=== PATIENT | male | born 1950 ===

== ENCOUNTER 2017-01-10 18:41 | Inpatient (IN) | payer MEDICARE, OTHER ==
[~2017-01-10 18:41] MED LIST: ADVIL PO; ALEVE220 M1 PO; AVODART0.5 MG PO; CARVEDILOL12.5 M1 PO; CATAPRES0.1 M1 PO; COREG25 M1 PO; COZAAR25 M1 PO; CYCLOBENZAPRINE5 M1 PO; EXFORGE 10-3201 EACH PO; EXFORGE 10-3201 TAB PO; FENOFIBRATE145 M2 PO; FISH OIL 11000 MG/CA PO; FLOMAX0.4 M1 PO; FLOMAX0.4 MG PO; FUROSEMIDE20 M1 PO; GLUCOPHAGE1000 M1 PO; HUMALOG100 UNITS/ SC; HUMULIN 70/30 V10 ML SQ; INSULIN U; JALYN 0.5-0.41 EACH PO; KEFLEX500 M4 PO; LANTUS SOL100 UNIT/1 SC; LEVAMIR; LEVEMIR100 UNITS/ SC; LIPITOR10 M1 PO; LYRICA75 MG; NEURONTIN100 MG PO; NEURONTIN300 M1 PO; NORVASC10 M2 PO; NORVASC5 M2 PO; PERCOCET 5-3251 EACH PO; PRINZIDE 20/12.1 TAB PO; PRINZIDE 20/251 TAB; SILVADENE20 G1 TOP; SYNTHROID100 MC1 PO; TAMIFLU75 MG/CAP PO; TRAMADOL HCL50 M2 PO; TRIGLIDE160 M1 PO; TRIGLIDE160 MG; TRILIPIX135 MG PO; TYLENOL #3 PO; TYLENOL WITH C1 EACH PO; ZITHROMAX250 M1 PO; [UNRECOGNIZED DRUG - OTHER] PO; [UNRECOGNIZED DRUG - OTHER] TP
[2017-01-10] MEDS ORDERED: HYDROCODON-ACE1 EA16 PO (18:55)
[2017-01-10] MEDS ORDERED: CALCITRIOL0.5 MC1 PO (18:56)
[2017-01-10 19:54] LABS: BASO % 0.2 % (0-2); EOS % 0.8 % (0-7); EOSINOPHIL ABSOLUTE COUNT 0.1 tho/cmm (0.0-0.7); HCT-HEMATOCRIT 34.7 % (36.0-53.5); HGB-HEMOGLOBIN 11.9 gm/dl (13.5-17.0); IMMATURE GRANULOCYTES ABSOLUTE 0.03 tho/cmm (0-0.03); IMMATURE GRANULOCYTES PERCENT 0.2 % (0-0.3); LYMPH % 5.7 % (20-45); LYMPH ABSOLUTE COUNT 0.7 tho/cmm (0.8-4.5); MCH (MEAN CORPUSCULAR HGB) 27.6 pg (28.0-32.0); MCHC MEAN CORPUSCULAR HGB CONC 34.3 % (32.0-36.0); MCV (MEAN CELL VOLUME) 80.5 fl (82.0-96.0); MEAN PLATELET VOLUME 8.6 cmc (9.4-12.4); MONO % 8.2 % (0-12); MONOCYTE ABSOLUTE COUNT 1.1 tho/cmm (0.0-1.2); NEUTROPHIL ABSOLUTE COUNT 10.9 tho/cmm (1.6-8.0); NEUTROPHIL-AUTOMATED 10.9 tho/cmm (1.6-8.0); NEUTROPHILS % 84.9 % (40-80); PLATELET COUNT 215 tho/cmm (150-450); RED BLOOD COUNT 4.31 mil/cmm (4.40-5.70); RED CELL DISTRIBUTION WIDTH 14.1 % (12.4-16.4); WHITE BLOOD COUNT 12.9 tho/cmm (4.0-10.0)
[2017-01-10 19:59] LABS: PROTHROMBIN TIME 11.9 SECONDS (9.0-13.6)
[2017-01-10 20:12] LABS: ALB/GLOB RATIO 0.6 (0.8-2.0); ALBUMIN 2.8 g/dl (3.5-5.0); ALKALINE PHOSPHATASE 126 U/L (33-138); ALT/SGPT 62 U/L (12-78); ANION GAP 12 mmol/L (0-20); AST/SGOT 112 U/L (10-40); BILIRUBIN,TOTAL 1.8 mg/dl (0.0-1.5); BLOOD UREA NITROGEN 34 mg/dl (6-24); CALCIUM 7.9 mg/dl (8.5-10.5); CARBON DIOXIDE-VENOUS 26 mmol/L (22-32); CHLORIDE 104 mmol/l (96-110); CREATININE 2.49 mg/dl (0.60-1.30); GLUCOSE 122 mg/dL (70-110); POTASSIUM 4.4 mmol/L (3.7-5.1); SODIUM 138 mmol/L (135-145); eGFR VALUE FOR BLACK 30 mL/Min
[2017-01-10 20:15] LABS: URINE LEUKOCYTE ESTERASE NEGATIVE (NEG); URINE PROTEIN LARGE (NEG); URINE SPECIFIC GRAVITY 1.015 (1.003-1.030)
[2017-01-10 20:17] LABS: URINE APPEARANCE HAZY; URINE BILIRUBIN SMALL (NEG); URINE BLOOD MODERATE (NEG); URINE COLOR YELLOW; URINE GLUCOSE (UA) SMALL (NEG); URINE KETONE SMALL (NEG); URINE NITRITE NEGATIVE (NEG)
[2017-01-10 20:17] LABS: LIPASE 20351 U/L (73-393)
[2017-01-10 20:28] LABS: URINE AMORPHOUS 1+; URINE BACTERIA 1+; URINE EPITHELIAL CELLS RARE /[HPF] (0-10)
[2017-01-11 05:57] LABS: BASO % 0.1 % (0-2); EOS % 0.1 % (0-7); HCT-HEMATOCRIT 35.2 % (36.0-53.5); HGB-HEMOGLOBIN 11.8 gm/dl (13.5-17.0); IMMATURE GRANULOCYTES ABSOLUTE 0.02 tho/cmm (0-0.03); IMMATURE GRANULOCYTES PERCENT 0.1 % (0-0.3); LYMPH % 4.9 % (20-45); LYMPH ABSOLUTE COUNT 0.7 tho/cmm (0.8-4.5); MCHC MEAN CORPUSCULAR HGB CONC 33.5 % (32.0-36.0); MCV (MEAN CELL VOLUME) 80.5 fl (82.0-96.0); MEAN PLATELET VOLUME 9.3 cmc (9.4-12.4); MONO % 10.3 % (0-12); MONOCYTE ABSOLUTE COUNT 1.4 tho/cmm (0.0-1.2); NEUTROPHIL ABSOLUTE COUNT 11.3 tho/cmm (1.6-8.0); NEUTROPHIL-AUTOMATED 11.3 tho/cmm (1.6-8.0); NEUTROPHILS % 84.5 % (40-80); PLATELET COUNT 177 tho/cmm (150-450); RED BLOOD COUNT 4.37 mil/cmm (4.40-5.70); RED CELL DISTRIBUTION WIDTH 14.4 % (12.4-16.4); WHITE BLOOD COUNT 13.4 tho/cmm (4.0-10.0)
[2017-01-11 06:05] LABS: ANION GAP 13 mmol/L (0-20); BLOOD UREA NITROGEN 32 mg/dl (6-24); CALCIUM 7.6 mg/dl (8.5-10.5); CARBON DIOXIDE-VENOUS 24 mmol/L (22-32); CHLORIDE 107 mmol/l (96-110); CREATININE 2.65 mg/dl (0.60-1.30); GLUCOSE 137 mg/dL (70-110); POTASSIUM 4.1 mmol/L (3.7-5.1); SODIUM 140 mmol/L (135-145); eGFR VALUE FOR BLACK 28 mL/Min
[2017-01-11 08:46] LABS: ALB/GLOB RATIO 0.5 (0.8-2.0); ALBUMIN 2.4 g/dl (3.5-5.0); ALKALINE PHOSPHATASE 153 U/L (33-138); ANION GAP 14 mmol/L (0-20); BLOOD UREA NITROGEN 33 mg/dl (6-24); CALCIUM 7.5 mg/dl (8.5-10.5); CARBON DIOXIDE-VENOUS 23 mmol/L (22-32); CHLORIDE 107 mmol/l (96-110); CHOLESTEROL 101 mg/dl (120-200); GLUCOSE 142 mg/dL (70-110); HDL CHOLESTEROL 39 mg/dl (40-60); LDL CHOLESTEROL 37 mg/dl (0-99); POTASSIUM 4.1 mmol/L (3.7-5.1); SODIUM 140 mmol/L (135-145); TRIGLYCERIDES 125 mg/dl (<149); VLDL 25 mg/dl (0-30); eGFR VALUE FOR BLACK 27 mL/Min
[2017-01-11 08:48] LABS: ALT/SGPT 130 U/L (12-78); AST/SGOT 293 U/L (10-40); LIPASE 10084 U/L (73-393)
--- NOTE | 2017-01-11 12:21 | NUR ---
VN ROUNDING NOTE-PATIENT IS SLEEPING AT THIS TIME SO DID NOT DISTURB. TOLD THE DAUGHTER THAT I WILL TRY TO CHECK ON HIM AGAIN LATER. CHART REVIEWED
--- NOTE | 2017-01-11 20:52 | NUR ---
VIRTUAL CARE NOTE: PT. HEADING OUT OF HIS ROOM FOR A WALK, WILL ASSESS LATER.
--- NOTE | 2017-01-11 21:58 | NUR ---
VIRTUAL CARE NOTE: ASSESSMENT DEFERRED. PT. SLEEPING.
[2017-01-12 05:50] LABS: BASO % 0.1 % (0-2); EOSINOPHIL ABSOLUTE COUNT 0.1 tho/cmm (0.0-0.7); HCT-HEMATOCRIT 32.4 % (36.0-53.5); HGB-HEMOGLOBIN 10.6 gm/dl (13.5-17.0); IMMATURE GRANULOCYTES ABSOLUTE 0.03 tho/cmm (0-0.03); IMMATURE GRANULOCYTES PERCENT 0.3 % (0-0.3); LYMPH % 6.9 % (20-45); LYMPH ABSOLUTE COUNT 0.6 tho/cmm (0.8-4.5); MCH (MEAN CORPUSCULAR HGB) 26.8 pg (28.0-32.0); MCHC MEAN CORPUSCULAR HGB CONC 32.7 % (32.0-36.0); MCV (MEAN CELL VOLUME) 81.8 fl (82.0-96.0); MEAN PLATELET VOLUME 9.4 cmc (9.4-12.4); MONO % 10.8 % (0-12); NEUTROPHIL ABSOLUTE COUNT 7.2 tho/cmm (1.6-8.0); NEUTROPHIL-AUTOMATED 7.2 tho/cmm (1.6-8.0); NEUTROPHILS % 80.9 % (40-80); PLATELET COUNT 122 tho/cmm (150-450); RED BLOOD COUNT 3.96 mil/cmm (4.40-5.70); RED CELL DISTRIBUTION WIDTH 15.1 % (12.4-16.4); WHITE BLOOD COUNT 8.9 tho/cmm (4.0-10.0)
[2017-01-12 06:08] LABS: ALB/GLOB RATIO 0.5 (0.8-2.0); ALBUMIN 1.9 g/dl (3.5-5.0); ALKALINE PHOSPHATASE 126 U/L (33-138); ALT/SGPT 111 U/L (12-78); ANION GAP 12 mmol/L (0-20); BILIRUBIN,DIRECT 4.2 mg/dl (0.0-0.3); BILIRUBIN,INDIRECT 0.3 mg/dL (0.0-1.0); BILIRUBIN,TOTAL 4.5 mg/dl (0.0-1.5); BLOOD UREA NITROGEN 43 mg/dl (6-24); CALCIUM 7.4 mg/dl (8.5-10.5); CARBON DIOXIDE-VENOUS 24 mmol/L (22-32); CHLORIDE 109 mmol/l (96-110); GLUCOSE 190 mg/dL (70-110); MAGNESIUM 1.9 mg/dl (1.3-2.6); PHOSPHOROUS 3.6 mg/dl (2.5-4.9); POTASSIUM 3.9 mmol/L (3.7-5.1); SODIUM 141 mmol/L (135-145)
[2017-01-12 06:19] LABS: AST/SGOT 127 U/L (10-40); CREATININE 3.44 mg/dl (0.60-1.30); LIPASE 839 U/L (73-393); eGFR VALUE FOR BLACK 20 mL/Min
[2017-01-12 17:56] LABS: URINE LEUKOCYTE ESTERASE NEGATIVE (NEG); URINE PROTEIN LARGE (NEG); URINE SPECIFIC GRAVITY 1.015 (1.003-1.030)
[2017-01-12 17:57] LABS: URINE APPEARANCE CLOUDY; URINE BILIRUBIN MODERATE (NEG); URINE BLOOD LARGE (NEG); URINE COLOR LIGHT BROWN; URINE GLUCOSE (UA) MODERATE (NEG); URINE KETONE SMALL (NEG); URINE NITRITE NEGATIVE (NEG)
[2017-01-12 17:59] LABS: URINE PRT/CR RATIO 7.52 Ratio (0.0-0.20); URINE TOTAL PROTEIN-RANDOM 842.9 mg/dl (<11.8)
[2017-01-12 18:04] LABS: URINE WBC 0-1 /[HPF] (0-5)
[2017-01-12 18:05] LABS: URINE BACTERIA 1+; URINE EPITHELIAL CELLS 0 /[HPF] (0-10)
--- NOTE | 2017-01-12 20:38 | NUR ---
VIRTUAL CARE NOTE: ATTEMPTED TO ROUND. PT THOUGHT I WAS THE SWITCHBOARD AND ALSO DIDNT HEAR ME WELL ENOUGH TO UNDERSTAND THE CAMERAS. FAMILY NOT PRESENT. PT DENIED NEEDS. WILL TRY AND ROUND WHEN FAMILY PRESENT TO EXPLAIN VN BETTER. WILL CONTINUE WITH CHART REVIEW.
[2017-01-13 04:53] LABS: INR 1.3 INR (0.9-1.1); PROTHROMBIN TIME 15.8 SECONDS (9.0-13.6)
[2017-01-13 05:06] LABS: BASO % 0.1 % (0-2); EOS % 2.6 % (0-7); EOSINOPHIL ABSOLUTE COUNT 0.2 tho/cmm (0.0-0.7); HCT-HEMATOCRIT 29.9 % (36.0-53.5); HGB-HEMOGLOBIN 9.8 gm/dl (13.5-17.0); IMMATURE GRANULOCYTES ABSOLUTE 0.02 tho/cmm (0-0.03); IMMATURE GRANULOCYTES PERCENT 0.3 % (0-0.3); LYMPH % 9.6 % (20-45); LYMPH ABSOLUTE COUNT 0.7 tho/cmm (0.8-4.5); MCH (MEAN CORPUSCULAR HGB) 26.3 pg (28.0-32.0); MCHC MEAN CORPUSCULAR HGB CONC 32.8 % (32.0-36.0); MCV (MEAN CELL VOLUME) 80.4 fl (82.0-96.0); MEAN PLATELET VOLUME 10.1 cmc (9.4-12.4); MONO % 9.2 % (0-12); MONOCYTE ABSOLUTE COUNT 0.7 tho/cmm (0.0-1.2); NEUTROPHIL ABSOLUTE COUNT 6.1 tho/cmm (1.6-8.0); NEUTROPHIL-AUTOMATED 6.1 tho/cmm (1.6-8.0); NEUTROPHILS % 78.2 % (40-80); PLATELET COUNT 147 tho/cmm (150-450); RED BLOOD COUNT 3.72 mil/cmm (4.40-5.70); RED CELL DISTRIBUTION WIDTH 15.2 % (12.4-16.4); WHITE BLOOD COUNT 7.7 tho/cmm (4.0-10.0)
[2017-01-13 05:08] LABS: ALB/GLOB RATIO 0.4 (0.8-2.0); ALBUMIN 1.7 g/dl (3.5-5.0); ALT/SGPT 97 U/L (12-78); ANION GAP 13 mmol/L (0-20); AST/SGOT 112 U/L (10-40); BILIRUBIN,DIRECT 2.8 mg/dl (0.0-0.3); BILIRUBIN,INDIRECT 0.3 mg/dL (0.0-1.0); BILIRUBIN,TOTAL 3.1 mg/dl (0.0-1.5); BLOOD UREA NITROGEN 39 mg/dl (6-24); CALCIUM 7.2 mg/dl (8.5-10.5); CARBON DIOXIDE-VENOUS 21 mmol/L (22-32); CHLORIDE 111 mmol/l (96-110); CREATININE 2.69 mg/dl (0.60-1.30); GLUCOSE 182 mg/dL (70-110); POTASSIUM 3.6 mmol/L (3.7-5.1); SODIUM 141 mmol/L (135-145); eGFR VALUE FOR BLACK 27 mL/Min
[2017-01-13 05:14] LABS: ALKALINE PHOSPHATASE 214 U/L (33-138)
[2017-01-14 05:18] LABS: HCT-HEMATOCRIT 30.3 % (36.0-53.5); HGB-HEMOGLOBIN 10.3 gm/dl (13.5-17.0); IMMATURE GRANULOCYTES ABSOLUTE 0.01 tho/cmm (0-0.03); IMMATURE GRANULOCYTES PERCENT 0.2 % (0-0.3); LYMPH % 8.4 % (20-45); LYMPH ABSOLUTE COUNT 0.5 tho/cmm (0.8-4.5); MCV (MEAN CELL VOLUME) 79.5 fl (82.0-96.0); MEAN PLATELET VOLUME 10.1 cmc (9.4-12.4); MONO % 4.8 % (0-12); MONOCYTE ABSOLUTE COUNT 0.3 tho/cmm (0.0-1.2); NEUTROPHIL ABSOLUTE COUNT 5.4 tho/cmm (1.6-8.0); NEUTROPHIL-AUTOMATED 5.4 tho/cmm (1.6-8.0); NEUTROPHILS % 86.6 % (40-80); PLATELET COUNT 179 tho/cmm (150-450); RED BLOOD COUNT 3.81 mil/cmm (4.40-5.70); RED CELL DISTRIBUTION WIDTH 15.3 % (12.4-16.4); WHITE BLOOD COUNT 6.2 tho/cmm (4.0-10.0)
[2017-01-14 05:24] LABS: INR 1.2 INR (0.9-1.1); PROTHROMBIN TIME 13.8 SECONDS (9.0-13.6)
[2017-01-14 05:33] LABS: ALB/GLOB RATIO 0.4 (0.8-2.0); ALBUMIN 1.7 g/dl (3.5-5.0); ALKALINE PHOSPHATASE 299 U/L (33-138); ALT/SGPT 87 U/L (12-78); ANION GAP 12 mmol/L (0-20); AST/SGOT 63 U/L (10-40); BILIRUBIN,TOTAL 1.6 mg/dl (0.0-1.5); BLOOD UREA NITROGEN 36 mg/dl (6-24); CALCIUM 7.5 mg/dl (8.5-10.5); CARBON DIOXIDE-VENOUS 21 mmol/L (22-32); CHLORIDE 111 mmol/l (96-110); CREATININE 2.36 mg/dl (0.60-1.30); GLUCOSE 273 mg/dL (70-110); SODIUM 139 mmol/L (135-145); eGFR VALUE FOR BLACK 32 mL/Min
[2017-01-14 05:43] LABS: POTASSIUM 4.5 mmol/L (3.7-5.1)
[2017-01-14] MEDS ORDERED: COLACE100 M1 PO (10:29)
== END 2017-01-14 15:45 | DRG 853 ==
LOC: EDMED 18:41 → EMR2 22:19 → 5WD 23:47 → ORW 01-13 13:39 → 5WD 01-13 15:25
PROVIDERS: Emergency Medicine; Internal Medicine; Internal Medicine Cardiovascular Disease; Specialist; Surgery; ADMIT Hospitalist
PROC: 0FCC8ZZ Extirpation of Matter from Ampulla of Vater, Via Natural or Artificial Opening Endoscopic (ICD-10-PCS; principal; 2017-01-11)
PROC: 0FT44ZZ Resection of Gallbladder, Percutaneous Endoscopic Approach (ICD-10-PCS; 2017-01-13)
DX: A41.9 Sepsis, unspecified organism (principal); K85.10 Biliary acute pancreatitis without necrosis or infection; K81.0 Acute cholecystitis; E11.22 Type 2 diabetes mellitus with diabetic chronic kidney disease; N18.3 Chronic kidney disease, stage 3 (moderate); E03.9 Hypothyroidism, unspecified; E78.5 Hyperlipidemia, unspecified; I12.9 Hypertensive chronic kidney disease with stage 1 through stage 4 chronic kidney disease, or unspecified chronic kidney disease
CPT/HCPCS: C1769; C9113; J0610; J0697; J1170; J1644; J1815; J1956; J2405; J3010; J3480; J7030; Q9966